=== PATIENT | male | born 1965 | race Caucasian/White ===

== ENCOUNTER 2018-01-22 12:30 | Emergency (ER) | payer SELFPAY ==
[2018-01-22] MEDS ORDERED: TETANUS & DIPHTHERIA TOX,ADULT 0.5 ML VIAL ONE (13:05)
[2018-01-22] MEDS ORDERED: SILVER SULFADIAZINE 1% 25 GM TOP ONE (13:05)
[2018-01-22] MEDS ORDERED: NA CHLORIDE 0.9% 1,000 ML ONE (13:05)
[2018-01-22] MEDS ORDERED: HYDROCODONE/APAP 10/325 TAB ONE (13:05)
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
== END 2018-01-22 14:22 | disposition home or self-care (01) ==
LOC: ER 12:30
PROC: 2W2FX4Z Dressing of Left Hand using Bandage (ICD-10-PCS; principal; 2018-01-22)
PROC: 2W2DX4Z Dressing of Left Lower Arm using Bandage (ICD-10-PCS; 2018-01-22)
DX: T23.252A Burn of second degree of left palm, initial encounter (principal); T22.212A Burn of second degree of left forearm, initial encounter; F17.210 Nicotine dependence, cigarettes, uncomplicated; X08.8XXA Exposure to other specified smoke, fire and flames, initial encounter; Y93.89 Activity, other specified; Y92.89 Other specified places as the place of occurrence of the external cause; Y99.0 Civilian activity done for income or pay; Z23 Encounter for immunization
CPT/HCPCS: 90714; 96360; 99283; J7030